=== PATIENT | female | born 1990 | race Caucasian/White ===

== ENCOUNTER 2025-03-09 22:28 | Emergency (ER) | payer OTHER, SELFPAY ==
--- OUTSIDE RECORDS SUMMARY | 2025-02-20 11:00 | XMS_ITS | Encounter Summary ---
Author Organization [employer] Address [address] [place] [address] Care Team Providers Care Emergency Vehicle Operations Instructor Name Role Phone Unavailable Primary Care Provider Unavailabl e Reason for Referral * Procedure/Equipment (Routine) - Incomplete Specialty Diagnoses / Procedures Referred By Viola t Referred To Contact Diagnoses Missed menses Procedures US OB < 14 Weeks Single US OB <14 Weeks W EV Single Liset Griffin APRN, CNM [address] [address] Phone: tel: fax: Referral ID Status Reason Start Date Expiration Date V isits Requested Visits Authorized [id number] Incomplete 03/01/2025 05/31/2026 1 1 Reason for Visit * Reason Comments Intake Encounter Details Date Type Department Care Team (Late Contact Info) Description 02/20/2025 11:00 AM CDT [facility] [address] 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 Thank you for your time today. It was so nice to talk with you, we look forward to partnering with you in your care. We covered a lot of information and there will be even more during your first visits, so we have put together some resources and reminders for you to review. Helpful Numbers: [phone]: [facility] OB Call Center (use this number to schedule, change, or cancel appointments, or tospeak with a nurse regarding questions or concerns) [phone]: PN Radiology (scheduling for routine ultrasounds) [phone]: PN Lab scheduling (all your testing and laboratory needs) Next Steps: Future Appointments Provider Department Center 03/07/2025 11:15 AM (Arrive by 11:10 AM) [facility] US 1 [facility] 03/08/2025 8:00 AM Liset Griffin APRN, CNM [facility] [address] Obstetrics/Gynecology PN [facility] 04/10/2025 10:15 AM Ana Maria Melo MD [facility] [address] Obstetrics/Gynecology PN [facility] ULTRASOUND It is important to be sure that you have an appointment for an ultrasound before your first in-person visit. These ultrasounds can often be done the same day as your in-person appointment or, if need be, a few days before. RADIOLOGY SCHEDULING - Call this number to schedule, change, cancel, or confirm yourultrasound appointment. VISIT(S) Please keep in mind that your partner is welcome to come with you to visits. When you are initially roomed, your partner will wait in the lobby and then will join shortly after. With an uncomplicated routine appointments generally happen every four weeks during the first two trimesters of . Starting at week 28 until delivery, appointments will be more frequent. Every is different, and our staff will guide you as your progresses to help keep your appointments on track. [facility] OB Call Center - Call this number for assistance with appointment scheduling. ROUTINE LABS Labs will be ordered by your provider at different stages of your beginning with your first in-person appointment. You will likely receive your results through [facility] at the same time as your provider and you may even see them before your provider has a chance. Don't worry - if there areany additional needs or the results are abnormal or concerning, the clinic will get in touch with you. Typically, if everything is normal or as expected, the provider will just review with you at your next routine appointment. MEDICATIONS Please contact your prescribing clinicians to notify them of your and discuss any medications you are currently taking. They may recommend changes or ask that you discuss with your OB clinician at your next appointment. It is not recommended to start a new medication or supplement without first consulting with your care team (this does not typically include things like antibiotics prescribed by another doctor). MYCHART (online patient portal and medical record) During your , we highly encourage and rely on your use of Bux180hart. This provides electronic access to, not only your personal medical information, but also to your care team. Please take time to become familiar with using this great tool. Some helpful options that are normally used during care include: Test Results: [facility] allows you to have access to results for the common blood and other laboratory tests completed during your . Questions/Messages: You can send non-urgent questions to your provider via Bux180hart. Please note, there can be a delay, so if you are experiencing any symptoms it is best to call the nurseline. Appointments: You can also use Rapid7t to review dates and times of appointments you have scheduled. [facility] Help: If you need help with your Bux180hart account, contact the Patient Support team at [phone]. For information on nutrition and vitamins visit: Nutrition During ACOG Visit and review our michelle and the e-book of Your Guide to : [place] for our free michelle called ???myHealthyPregnancy?? powered by [employer]. The michelle offers many quick articles and videos on , labor, , , and newborncare. Scan the following QR code: Or click this link: myHealthyPregnancy tracker michelle [facility] Copy & paste the following link to view the Your Guide to e-book: [email or web address]- - ABOUT THE BOOK: This is the first book (1 of 3) that you will receive during your . It focuses on the earlier stages of and is packed with information. You will also receive a hard copy (unless you prefer to just use the electronic version) of this book at your first in-person appointment. Having a chance to review this ahead of time may help you generate questions for your first visit. - VIDEOS: The e-book also has videos available on many topics that may be of interest to you. - SAVE OR SHARE: Feel free to save and share the link for the book. This makes it easier to find and also helps partners feel more involved and informed during your . - COMMON/HELPFUL TOPICS: - Genetic Screening/Testing Options - Page 10 - Symptoms & Body Changes - Benefits of Exercise - Sexual Activity - Dental Hygiene - Travel - Feeding Plans/ Resources - Working/Lifestyle Considerations - Potential Risks and How to Avoid (for example, teratogens, listeriosis, & toxoplasmosis) - Nutrition - What to Eat/Not Eat: Avoid high glycemic content foods Adequate calcium Avoid nitrites - Weight Gain: Remember the information in the book is based on normal averages. Your clinician will discuss with you your recommendations for based on things like your personal health and BMI. - [facility] Fish Guides: [email or web address]/environment/fish/docs/choosefishengli sh.pdf [email or web address]/environment/fish/docs/pregntstateguid [email or web address] CONTACT INSURANCE: Early is a great time to verify your insurance benefits and estimated costs. Individual insurance plans can vary, so it is best to contact your carrier directly for the most accurate information. If you have any difficulties or questions, don't hesitate to contact us at . Nursing support is available 24 hours a day, 365 days a year. We want to make sure that you feel supported and stay healthy. Thank you, again, for choosing us to partner in your care! [facility] * Attachments The following attachments cannot be sent through Care Everywhere. * !Nausea in (Peruvian) * !Over the Counter Medications: To treat common symptoms during (Peruvian) documented in this encounter Progress Notes * Caty Kidd RN - 02/20/2025 11:00 AM CDT RN OB Intake Visit Irena Currie is a 34 y.o. female, : This is a planned . They had been attempting for 24 cycles. Preferred Care Locations: Clinic Preference: [facility] [MD/FINISHING PAN OPERATOR] [facility] for Delivery: [facility] Provider care models, preferred locations, and expected plan for care reviewed with patient. 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 Other important social information/history: Patient has a very stressful job and is unable to seek therapy so is concerned about mental health Does patient have Type 1 or 2 diabetes? No CareEverwhere/External Records: CareEverywhere will need updating at in-person visit. Film Or Videotape Editor History: Pregravid Weight: 188 lbs Number of living children: 0 OB History Para Term AB Living 2 0 0 0 1 0 SAB IAB Ectopic Multiple Live Births 1 0 0 0 0 # Outcome Date GA Lbr Tigre/2nd Weight Sex Type Anes PTL Lv 2 Current 1 SAB 08/2024 7w0d Menstrual History: LMP: Patient's last menstrual period was 01/05/2025 (exact date). +UPT: 02/02/2025 02/20/2025 11:05 AM MENSTRUAL TRACKING Period Cycle (Days) 23 Period Duration (Days) 5 Period Pattern Regular Menstrual Flow Moderate Cytology History: Last cytology: 01/03/2024 - NILM Hx of abnormal cytology (see chart). Current Symptoms: Pt states she is experiencing nausea and vomiting. PUQE assessment completed - please review scoring. (Patient's nausea and vomiting objectively assessed through patient's responses to the Modified Unique Quantification of Emesis (PUQE) score: On an average day, for how long do you feel nauseated or sick to your stomach? >6 hours (5 points) On an average day, how many times do you vomit or throw up? 3-4 (3 points) On an average day, how many times do you have retching or dry heaves without bringing anything up? 5-6 (4 points) PUQE Scorin-12- Moderate nausea and vomiting . Patient education for Nausea and Vomiting in , and Morning Sickness to be provided to patient in AVS. Denies any current vaginal bleeding, pelvic pain, and other concerning symptoms. Home care advice and interventions provided to patient from approved Patient Education materials. Patient reminded of nurseline resource for new, worsening, or changing symptom(s) support and management. Contact information provided. GENERAL HEALTH STATUS & HISTORY: Past Medical History: Diagnosis Date Pap smear abnormality of cervix HPV STD (sexually transmitted disease) (HRC) HPV Urinary tract infection, site not specified Varicella Virus Infection History: Hx Varicella (Virus) Hx HPV+ Surgical/Procedure History: Past Surgical History: Procedure Laterality Date COLPOSCOPY WISDOM TEETH EXTRACTION Medications: Current Outpatient Medications Medication Sig Dispense Refill Biotin 5 MG (Patient not taking: Reported on 02/20/2025) Ferrous Sulfate Dried 160 (50 Fe) MG (Patient not taking: Reported on 02/20/2025) letrozole (FEMARA) 2.5 MG tablet Take 1 Tablet (2.5 mg) by mouth daily for 5 days. 5 Tablet 0 MAGNESIUM OR (Patient not taking: Reported on 02/20/2025) metoclopramide (REGLAN) 10 MG tablet Take 1 Tablet (10 mg) by mouth 4 times daily before meals and at bedtime. (Patient not taking: Reported on 02/20/2025) 30 Tablet 2 Multiple Vitamins-Minerals (MULTIVITAL OR) (Patient not taking: Reported on 02/20/2025) [place]-3 Fatty Acids (OMEGA-3 CF OR) (Patient not taking: Reported on 02/20/2025) Vit-Fe Fumarate-FA ( OR) progesterone (PROMETRIUM) 200 MG capsule INSERT 1 CAPSULE (200 MG) VAGINALLY DAILY AT BEDTIME. 40 Capsule 1 No current facility-administered medications for this visit. Pt medications, allergies, and preferred pharmacy reviewed. Vitamin: Patient is currently taking a vitamin. Pt agrees to call OB clinicians with questions or concerns regarding medication use throughout thispregnancy and to notify any other prescribing clinicians of status. 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 Driver Tobacco Use Smoking status: Never Smokeless tobacco: Never Vaping Use Vaping status: Never Used Substance and Sexual Activity Alcohol use: Not Currently Comment: does not drink due to Drug use: Never Sexual activity: Yes Partners: Male control/protection: Attempting Comment: Damaso Other Topics Concern Bike Helmet No [place] Water Yes Exercise Yes Guns in home Yes Comment: locked and secured Seat Belt Yes Special Diet No Weight Concern No Social Drivers of Health Tobacco Use: Low Risk (02/20/2025) Patient History Smoking Tobacco Use: Never Smokeless Tobacco Use: Never Depression: Not at risk (05/27/2021) PHQ-2 PHQ-2 Score: 0 FAMILY/GENETIC STATUS, HISTORY, & RISK FACTORS: Patient reports a positive family history of AMA at the time delivery, sister has Autism COMPLETED WITH INTAKE VISIT: Ultrasound: Ordered per standing order. Pt instructed to complete scan prior to, and as close to, NOB1 visit as possible. Pt transferred to radiology scheduling upon completion of intake visit. Education Topics Discussed and Encouraged for Review from Your Guide to and HP/PN approved Patient Education Resources: Diet and Nutrition: encourage fruits, vegetables, and low-fat protein sources avoid high glycemic index foods and simple carbs importance of adequate calcium discussed eating fish in listeriosis infection (including sources and prevention of Listeriosis) avoid nitrites in processed meats Medications: Patient provided additional education piece of Gzlx-aah-Xjkzxdn medications safe for use in . Sexual activity during discussed. Dental hygiene during discussed. Avoid use of alcoholic beverages, smoking, and recreational drugs reminder provider. Patient provided clinical resources, as applicable. Environmental and work considerations and overall lifestyle choices in reviewed with patient. Benefits of exercise during reviewed. Patient encouraged to maintain regular physical activity. /Childbirth classes and options discussed. At next visit, provider to review records and establish formal plan of care. Book & Michelle: Patient provided information on how to access Your Guide to e-book and the free myHealthyPregnancy Michelle. MyChart: Patient given guidance to use Bux180hart to message care team and review results during theirpregnancy. Additional links/resources sent for patient to review. Nurseline: Pt instructed to call nurseline with changes, questions, or concerns. All other standard OB educational resources reviewed with patient, as well as ways to access or obtain. Pt verbalizes understanding and agrees with plan of care. No further questions at this time. Patient reminded of nurseline access 24/01. director of community center Visit completed - February 20, 2025 Merchandise Processor: Not Applicable Length of appointment: 47 minutes not including chart review or visit documentation. documented in this encounter Plan of Treatment Upcoming Encounters Date Type Department Care Team (Late st Contact Info) Description 03/13/2025 10:00 AM CDT Appointment [facility] [address] [place] [phone] 03/13/2025 11:00 AM CDT Appointment [facility] [address] [place] [address] Zari Jasso [facility] [address] [facility] [address] [place] [address] 04/04/2025 8:15 AM CDT Appointment [facility] [address] [place] [address] Alayna Toney, INSPECTOR CONVEYOR LINE, CNM [address] [place] [address] 04/04/2025 9:00 AM CDT Appointment [facility] [address] [place] [address] Durga Peters MD [address] [facility] [place] [address] 04/10/2025 10:15 AM CDT Appointment [place] [address] Obstetrics/Gynecology [address] [place] [phone] [place] [address] [place] [address] 05/10/2025 8:45 AM MACHINE SHOP SUPERVISOR Appointment [place] [address] Obstetrics/Gynecology [address] [place] [phone] [place] [address] [place] [phone] 06/05/2025 2:30 PM MACHINE SHOP SUPERVISOR Appointment [facility] [address] [place] [address] Alayna Toney, PATTI, [facility] [address] [place] [address] 06/05/2025 3:15 PM MACHINE SHOP SUPERVISOR Appointment [facility] Maternal Medicine [address] [place] [phone] Durga Peters MD [address] [facility] [place] [address] documented as of this encounter Results * US OB < 14 Weeks Single (03/07/2025 11:31 AM CDT) Anatomical Region Laterality Modality Pelvis Ultrasound Impressions 03/07/2025 12:37 PM CDT 1. Single living intrauterine with a sonographic gestational age of 9 weeks + 2 days, corresponding to an MARIBETH of 10/08/2025. Signed by: John Rivera 03/07/2025 12:37 PM Narrative 03/07/2025 12:37 PM CDT EXAM: US OB < 14 WEEKS SINGLE INDICATION: missed menses COMPARISON: Ultrasound 06/01/2024 TECHNIQUE: Transabdominal imaging was performed. FINDINGS: Gestational sac: Unremarkable. [place]-rump length measures 2.5 cm, corresponding to9w2d gestational age. Gestational sac location: Normal MARIBETH: 10/08/2025. Embryonic/ cardiac activity is identified at 169 bpm. Right Ovary: Measures 2.7 x 2.5 x 2.8 cm and appears unremarkable. Left Ovary: Measures 2.9 x 1.7 x 2.4 cm and appears unremarkable. No suspicious adnexal mass. Free Fluid: No significant free fluid. GA by LMP: 8w5d GA by Prior US: NA GA by today's US: 9w2d MARIBETH by today's US: 10/08/2025 Procedure Note John Rivera MD - 03/07/2025 EXAM: US OB < 14 WEEKS SINGLE INDICATION: missed menses COMPARISON: Ultrasound 06/01/2024 TECHNIQUE: Transabdominal imaging was performed. FINDINGS: Gestational sac: Unremarkable. [place]-rump length measures 2.5 cm, corresponding to9w2d gestational age. Gestational sac location: Normal MARIBETH: 10/08/2025. Embryonic/ cardiac activity is identified at 169 bpm. Right Ovary: Measures 2.7 x 2.5 x 2.8 cm and appears unremarkable. Left Ovary: Measures 2.9 x 1.7 x 2.4 cm and appears unremarkable. No suspicious adnexal mass. Free Fluid: No significant free fluid. GA by LMP: 8w5d GA by Prior US: NA GA by today's US: 9w2d MARIBETH by today's US: 10/08/2025 IMPRESSION 1. Single living intrauterine with a sonographic gestational ageof 9 weeks + 2 days, corresponding to an MARIBETH of 10/08/2025. Signed by: John Rivera 03/07/2025 12:37 PM us Liset Griffin APRN, KIMM RAD US Final Result documented in this encounter Visit Diagnoses Diagnosis Missed menses- Primary Absence of menstruation Missed menses Absence of menstruation documented in this encounter
--- OUTSIDE RECORDS SUMMARY | 2025-03-07 11:15 | XMS_ITS | Encounter Summary ---
Author Organization [employer] Address [address], [place] [address] Care Team Providers Care Multifocal Lens Inspector Name Role Phone Unavailable Primary Care Provider Unavailabl e Reason for Visit * Procedure/Equipment (Routine) - Incomplete Specialty Diagnoses / Procedures Referred By Contradha t Referred To Contact Diagnoses Missed menses Procedures US OB < 14 Weeks Single US OB <14 Weeks W EV Single Liset Griffin APRN, CNM [address] [place] [address] Phone: tel: fax: Referral ID Status Reason Start Date Expiration Date V isits Requested Visits Authorized [id number] Incomplete 03/01/2025 05/31/2026 1 1 Encounter Details Date Type Department Care Team (Late st Contact Info) Description 03/07/2025 11:15 AM CDT Ancillary Procedure [facility] [address] [place] [phone] Liset [place]N, CNM [address] [address] [place] [address] Missed menses Social History Tobacco Use Types Packs/Day Years Used Date Smoking Tobacco: Never Smokeless Tobacco: Never Alcohol Use Standard Drinks/Week Comments Not Currently 0 (1 standard drink = 0.6 oz pure alcohol) does not drink due to PHQ-2 Answer Date Recorded PHQ-2 Score 0 05/27/2021 Depression Answer Date Recor ded Last EPDS Total Score 1 03/08/2025 Last EPDS Self Harm Result Not on file 03/08 Estimated Date of Delivery Comme nts Yes 10/08/2025 Based on Ultraso und Sex and Gender Information Value Date Recorded Sex Assigned at Not on file Legal Sex Female 7:00 AM CDT Gender Identity Not on file Sexual Orientation Not on file 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 on file Not on file Not o n file 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, Power 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 Not on file Not on file Not on file documented as of this encounter Plan of Treatment Upcoming Encounters Date Type Department Care Team (Late st Contact Info) Description 03/13/2025 10:00 AM CDT Appointment [facility] [address] [place] [phone] 03/13/2025 11:00 AM CDT Appointment [facility] [facility] [address] [place] [address] Zari Jasso, [facility] [address] [facility] [address] [place] [address] 04/04/2025 8:15 AM CDT Appointment [facility] [facility] [address] [place] [address] [phone] Alayna Toney, SALES COACH, CNM [address] [place] [address] 04/04/2025 9:00 AM CDT Appointment [facility] [address] [place] [address] Durga Peters MD [address] [facility] [address] [place] [id number] 04/10/2025 10:15 AM CDT Appointment [place] [address] Obstetrics/Gynecology [address] [place] [phone] [place] [address] [place] [address] 05/10/2025 8:45 AM COMPLETION MANAGER Appointment [place] [address] Obstetrics/Gynecology [address] [place] [phone] Liset Griffin, SALES COACH, CNM [address] [place] [phone] 06/05/2025 2:30 PM COMPLETION MANAGER Appointment [facility] [facility] [address] [place] [phone] Alayna Toney APRN, CNM [address] [place] [address] 06/05/2025 3:15 PM COMPLETION MANAGER Appointment [facility] [address] [facility] [address] [place] [address] [phone] Durga Peters MD [address] [facility] [address] [place], [place] [address] documented as of this encounter Procedures Procedure Name Priority Date/Time Associated Diagnosis Comments US OB < 14 WEEKS SINGLE Routine 03/07/2025 11:31 AM CDT Missed menses documented in this encounter Results * US OB < [...] imaging was performed. FINDINGS: Gestational sac: Unremarkable. [place]-rump length measures 2.5 cm, corresponding to9w2d gestational [...] imaging was performed. FINDINGS: Gestational sac: Unremarkable. [place]-rump length measures 2.5 cm, corresponding to9w2d gestational [...] 03/07/2025 12:37 PM us Liset Griffin APRN, CNM RAD US Final Result documented in this encounter Visit Diagnoses Diagnosis Missed menses Absence of menstruation documented in this encounter
--- OUTSIDE RECORDS SUMMARY | 2025-03-08 08:00 | XMS_ITS | Encounter Summary ---
[facility] Address [address], [place] [address] Care Team Providers Care Price Checker Name Role Phone Unavailable Primary Care Provider Unavailabl e Reason for Referral * Procedure/Equipment (Routine) - Incomplete Specialty Diagnoses / Procedures Referred By Contac t Referred To Contact Diagnoses High risk , antepartum Advanced maternal age, primigravida, antepartum Procedures MFM US OB Detailed Anatomy Al[place] CN[place] [address] [place] [address] Phone: tel: fax: Referral ID Status Reason Start Date Expiration Date V isits Requested Visits Authorized [id number] Incomplete 03/08/2025 06/07/2026 1 1 * Procedure/Equipment (Routine) - Incomplete Specialty Diagnoses / Procedures Referred By Contac t Referred To Contact Diagnoses High risk , antepartum Advanced maternal age, primigravida, antepartum Procedures MFM US OB First Trimester Ultrasound Alayna Toney APRN, CNM [address] [place] [address] Phone: tel: fax: Referral ID Status Reason Start Date Expiration Date V isits Requested Visits Authorized [id number] Incomplete 03/08/2025 06/07/2026 1 1 * Consult/Transfer Care (Routine) - New Request Specialty Diagnoses / Procedures Referred By Viola t Referred To Contact Diagnoses High risk , antepartum [place] CN[place] [address] [place] [address] Phone: tel: fax: Referral ID Status Reason Start Date Expiration Date V isits Requested Visits Authorized [id number] New Request 03/08/2025 06/07/2026 1 1 Scheduling Instructions Your clinician has recommended an appointment with [facility]. A water meter mechanic will contact you to assist you in setting up this appointment. If you have not been contacted within one week or have any questions, please call [phone]. We suggest you call your health insurance company about your coverage and benefits for this appointment. Question Answer Appointment Urgency? Non-Urgent Multiple Gestation? 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 Not on file Not on file documented as of this encounter Last Filed Vital Signs Vital Sign Reading Time Taken Comments Blood Pressure 133/77 03/08/2025 8:07 AM CDT Pulse 83 03/08/2025 8:07 AM CDT Temperature - - Respiratory Rate - - Oxygen Saturation - - Inhaled Oxygen Concentration - - Weight 84.9 kg (187 lb 3.2 oz) 03/08/2025 8:07 A M CDT Height 162.6 cm (5' 4) 03/08/2025 8:07 AM CDT Body Mass Index 32.13 03/08/2025 8:07 AM CDT documented in this encounter Patient Instructions * Patient Instructions* Liset Griffin, PATTI, RENEE - 03/08/2025 8:00 AM CDT Images from the original note were not included. Low dose aspirin 162 mg daily starting at 12 weeks. GENETIC SCREENING OPTIONS NIPS (non-invasive screening): This is a blood test that looks at baby's DNA. It is done through a company called [employer]. It looksfor trisomy 21 (Down Syndrome), trisomy 13, trisomy 18, and 22q. It can also detect the sex and problems with sex chromosomes. You can opt out of learning the sex if you wish, but [employer] will release the results to you if they are abnormal. What is 22q? 22q affects all pregnancies equally (~07/1499) as it is not related to AMA and is usually sporadic 22q is an extremely variable condition, ranging from mild to severe Common features include heart defects, developmental delays and learning differences, seizures, immune deficiencies, and palatal abnormalities It can be done any time after 9 weeks, though closer to 10 might be slightly more accurate. It will take 1-2 weeks for the test results to come in. It's possible that there will be insufficient DNA in the sample. If that happens, you will be giventhe option to repeat it. The likelihood of getting a good sample the second time depends on a few variables, including the amount of DNA present the first time. This number will be included in the report. If that occurs, and you wish to repeat it, you will not be charged twice. You can call your insurance with the following CPT codes: 83049 (NIPS). More information can be found at [employer] Maternal First Trimester Ultrasound: This is an ultrasound done with the Maternal Medicine Department. It is done at 12-14 weeks. It is an early anatomy scan. It does NOT look at the gender. Usually insurance covers it if your is considered high risk. Please check with your insurance plan. The CPT codes used for this are as follows: [place] [address], if transvaginal needed then add 22087. For MFM detailed first trimester 99400 and 24043. Carrier screening: This is a blood test for you that looks at your DNA to see if you are a carrier for genetic abnormalities. The basic carrier panel Horizon 4 looks for Cystic Fibrosis (CF),?Spinal Muscular Atrophy (SMA),?Fragile X,?and Duchenne Muscular Dystrophy (DMD). This panel is slightly different than what ACOG recommends. ACOG recommends that all women be offered screening for Cystic Fibrosis, SMA, and hemoglobinopathies. The cost is $250. If you are a carrier for any of the above conditions, we recommend having your partner tested for that condition. CPT codes: 99090, 29216, 82144. AFP (Alpha Protein): This is a blood test looking at baby's risk of spina bifida and other open neural tube defects suchas anencephaly. It is offered between 15-20 weeks. You will need to check with your insurance about coverage. For nausea: 1) Take Vitamin B6, 25 mg 3-4 times per day whether or not you think it's helping. 2) Take Unisom 1/2 - 1 tablet before bed. 3) Drink carbonated beverages such as Sprite, carbonated water, or gosia michel. Stay hydrated. 4) Eat/drink anything gosia flavored (candy, tea). 5) Eat baked potatoes. 6) Sleep as much as possible. 7) Eat Preggie Pops (hard candies). Try to find the kind with Vitamin B6. 8) Keep saltines and gosia michel on your nightstand and have a little of each before getting out of bed. Get up slowly. 9) Don't take your vitamins on an empty stomach. 10) Some women find Sea Bands helpful for nausea management. Thank you for choosing us for your care. You will receive 3 books throughout your starting with Your Guide to . We recommend you review the following information in this book: Testing Genetic Testing How Your Body Changes Making Good Choices Six Steps to a Healthy How Babies Grow and Change To learn about the screening available for specific inherited diseases including cystic fibrosis and spinal muscular atrophy, see our handout on Genetic Disease Carrier Screening: https://[employer]/57942.pdf Drinking any amount of alcohol during is not safe. Watch this short video by [employer] [place]: Proof: Some Think Drinking During is OK. It???s Not. - Ophelia video Marijuana use is never recommended while or . Learn why here: https://[employer]/43973.pdf is a time of transition. If you feel overwhelmed, anxious or depressed, see the followingresources: Emotional Distress During and After : https://[employer]/96999.pdf Resources & Support for New & Expecting Parents: https://[employer]/04199.pdf The 3 books provided throughout are also available digitally. Here are the links to each book: Your Guide to : https://user-[employer].iMOSPHERE.bz/WuftjfSgadygqr-Wttk-Olbon-db-e-Qeadhwe- Preparing for Childbirth: https://user-[employer].iMOSPHERE.bz/PlctclDzlwiqvn-Dbm-Qjqr-of-Motherhood Taking Care of You and Your Bivalve: https://user-[employer].iMOSPHERE.bz/GwgyuzFmyuoxix-S-Yol-Beginning [place] for our free harshil called ???myHealthyPregnancy?? powered by [employer]. The harshil offers many quick articles and videos on , labor, , , and newborncare. Find instructions here: Or click on this link: myHealthyPregnancy tracker harshil [facility] In [place], soon-to-be, new, and nursing parents have legal protections to help keep them safe and healthy in the workplace. Find more information here: Or click on this link: Workers And New Parents documented in this encounter Progress Notes * Hazel Adhikari RN - 03/08/2025 8:00 AM CDTAddended by: HAZEL ADHIKARI on: 03/08/2025 02:16 PM Modules accepted: Orders * Liset Griffin APRN, CNM - 03/08/2025 8:00 AM CDT Initial Visit Irena Currie is a 34 y.o. is being seen today for her first obstetrical visit. She is established with the OBGYN department and known to me. Subjective: Current symptoms: Nausea: all day, retching, dry heaves. - PUQE score= 12 - Reglan and Zofran was prescribed but she advised she cannot take or she will be disqualified to work per employer. She was advised that she can take Reglan but then cannot return to work for 30 hours. Zofran is not permitted. 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 Breast tenderness: no Fatigue: yes Bleeding/Spotting: no Other: none Healthy Beginnings: mom is an alcoholic and her father had drug and alcohol use issue (he has ). She does not drink alcohol. Lead: no EPDS: 1 Risk Factors: Hx miscarriage/possible luteal phase defect/short cycles: Irena and Sal met in July of this for miscarriage. Currently taking progesterone 200 mg. Femara used this . Last dose 01/07 or 01/08. Class 1 obesity: Pre- BMI =34 AMA: Will be 35 at MARIBETH. Rh negative: B neg Hx abnormal pap: ASCUS HPV neg 05/2021 Due 2025. Menstrual History and Dating: Dating Summary Working MARIBETH: None selected Based On MARIBETH [place] Diff User Date Last Menstrual Period on 01/05/2025 (Exact Date) 10/12/2025 Caty Kidd RN 02/20/2025 LMP: 01/05/25 Menses are regular, every 21- 23 days. Positive home UPT on: 02/02/25 Dating ultrasound yesterday 03/07 showed GA of 9w 2d. Discrepancy between LMP and radiology datin days. dating is based on ultrasound, and the patient is agreeable to this MARIBETH: 10/08/25. 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 Personal or family history of pre-eclampsia: History of sexual assault or abuse: no Plans to use WIC: no Regular dental exams: yes OB History Para Term AB Living 2 0 0 0 1 0 SAB IAB Ectopic Multiple Live Births 1 0 0 0 0 # Outcome Date GA Lbr Tigre/2nd Weight Sex Type Anes PTL Lv 2 Current 1 SAB 08/2024 7w0d Last pap: 01/03/24 Hx of abnormal pap: yes. Social History: SDOH[1] Partner involved: yes, Damaso. Currently living with Damaso. 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 Partner employment: peoples[employer] consultant. Past Medical History: Past Medical History[2] Surgeries: Past Surgical History[3] Family/Genetic History: Family History[4] Luteal phase defect. Medications: Medications - Previous to this Encounter[5] Allergies/medications/family/genetic history reviewed and updated as needed in [facility]. Objective: Estimated body mass index is 34.84 kg/m?? as calculated from the following: Height as of 05/29/24: 5' 4 (1.626 m). Weight as of 10/16/24: 203 lb (92.1 kg). See flow sheet. General: The patient appears well, in NAD. Neck: supple, symmetrical, trachea midline, no adenopathy. Thyroid: not enlarged, symmetric, no tenderness/mass/nodules. Lungs: clear, good air entry, no wheezes, rhonchi or rales. Heart: No murmurs, regular rate and rhythm. Breast: normal without suspicious masses, skin or nipple changes or axillary nodes Abdomen: soft without tenderness, guarding, rebound tenderness, mass or organomegaly. Back: Symmetric, normal curvature, no CVAT. Pelvic: Ext Gen: No lesions, normal female Urethra: Normal Speculum and bimanual exams deferred. Lower extremities: No edema Skin: No rash or lesions. Psychiatric: Alert & oriented with normal affect and insight, does not appear depressed or anxious. Assessment: 34 y.o. at Unknown Problem List[6] Plan: During this visit, I completed the following health counseling with patient: Genetic screening options Offered NIPS, MFM early anatomy screen, and carrier screening (core, expanded). Also discussed maternal screen and quad as less sensitive tests and generally recommended only if insurance doesn't cover previously mentioned. Check with insurance for coverage Discussed [facility] billing and contact information provided. Supplements recommended daily Vitamin Avoid use of alcoholic beverages, smoking and recreational drugs. Diet and Nutrition Healthy, well-balanced nutrition Listeriosis prevention- food safety information Fish brochure Precautions and warning signs: Pt to call with bleeding, pain, fever. Reviewed page 46 of NOB book. Weight gain recommendations during Pre- BMI is above 30 so recommended weight gain is 11-20 # Benefits of exercise during and encouraged regular physical activity Toxoplasmosis prevention Partner to change litter box during if cat(s) at home. COVID Counseling COVID virus information and precautions discussion. Follow CDC for latest recommendations. COVID vaccine recommended during for those not already vaccinated. Advised to call with positive result at which time Paxlovid will likely be recommended. Advised positive results will result in recommendations to start ASA and proceed with additional monitoring. care Schedule of visits reviewed. Some visits may be conducted via phone/video during covid-19 pandemic. MD call group discussed. Nurse line for concerns between appointments Labs: routine initial labs; see orders for additional labs. Ultrasound: early OB ultrasound for viability and to confirm dating reviewed. MFM & genetic screening/testing: desires NIPS and carrier screening and 12-14 week scan with MFM. Referral to Healthy Beginnings: no Low dose aspirin for the prevention of preeclampsia: yes COVID vaccine: received two initial doses and declines further. Return in 4 weeks for NOB2 with MD, sooner as needed Problems: Hx miscarriage/possible luteal phase defect/short cycles: Plan to use ultrasound dating due to short cycles. Class 1 obesity: Weight gain of 11-20 pounds recommended Offer Level 2 ultrasound @ 20-22 weeks Weekly testing at 36 weeks Ppx ASA 162 mg daily. Congratulated on recent weight loss of 20# AMA >35: Detailed level 2 at 20 weeks Genetic screening discussed and offered: NIPS, 12-14 week scan and carrier screening Growth at 32w IOL based on ACOG recommendations and risk factors Rh negative: Rho nivia at 28w or with bleeding as heavy or heavier than a period. 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 Tobacco Use Smoking status: Never Smokeless tobacco: [...] at risk (05/27/2021) PHQ-2 PHQ-2 Score: 0 [2] Past Medical History: Diagnosis Date Pap smear abnormality of cervix HPV STD (sexually transmitted disease) ([facility]) HPV Urinary tract infection, site not specified Varicella Virus [3] Past Surgical History: Procedure Laterality Date COLPOSCOPY WISDOM TEETH EXTRACTION [4] Family History Problem Relation Name Age of Onset Hypertension Mother Hypertension Father Schizophrenia Sister Bipolar Disorder Sister Autism Sister Unknown Brother Unknown Brother Dementia Maternal Grandmother Unknown Maternal Grandfather Diabetes Paternal Grandmother [5] Outpatient Medications Prior to Visit Medication Sig Dispense Refill Biotin 5 MG [...] OR) (Patient not taking: Reported on 02/20/2025) Storden-3 Fatty Acids (OMEGA-3 CF OR) (Patient not taking: Reported on 02/20/2025) Vit-Fe Fumarate-FA ( OR) progesterone (PROMETRIUM) 200 MG capsule INSERT 1 CAPSULE (200 MG) VAGINALLY DAILY AT BEDTIME. 40 Capsule 1 No facility-administered medications prior to visit. [6] Patient Active Problem List Diagnosis Atypical squamous cells of undetermined significance on cytologic smear of cervix (ASC-US) Elevated TSH * Brooke Aranda LPN - 03/08/2025 8:00 AM CDT Patient's nausea and vomiting objectively assessed through patient's responses to the Modified Unique Quantification of Emesis (PUQE) score: On an average day, for how long do you feel nauseated or sick to your stomach? >6 hours (5 points) On an average day, how many times do you vomit or throw up? 1-2 (2 points) On an average day, how many times do you have retching or dry heaves without bringing anything up? 7 or more (5 points) PUQE Scorin-12- Moderate nausea and vomiting documented in this encounter Plan of Treatment Upcoming Encounters Date Type Department Care Team (Late st Contact Info) Description 03/13/2025 10:00 AM CDT Appointment [facility] [address] [place] [address] 03/13/2025 11:00 AM CDT [facility]ointment [facility] Maternal Medicine [address] [place] [address] Zari Jasso [facility] [address] [place] [address] 04/04/2025 8:15 AM CDT Appointment [facility] Maternal Medicine [address] [place] [address] [place] [address] [place] [address] 04/04/2025 9:00 AM CDT Appointment [facility] Maternal Medicine [address] [place] [address] Durga Peters MD [address] [place] [address] [address] [place] [address] 04/10/2025 10:15 AM CDT Appointment [place] [address] Obstetrics/Gynecology [address] [place] [phone] [place] [address] [place] [address] 05/10/2025 8:45 AM SITE INTERPRETER Appointment [place] [address] Obstetrics/Gynecology [address] [place] [phone] Liset Griffin APRN, CNM [address] [place] [address] 06/05/2025 2:30 PM SITE INTERPRETER Appointment [facility] [address] Maternal Medicine [address] [place] [address] Alayna Toney, [employer] POWER PLANT ENGINEER, CNM [address] [place], [place] [address] 06/05/2025 3:15 PM SITE INTERPRETER Appointment [facility] Maternal Medicine [address] [place], [place] [address] Durga Peters MD [address] [place] [address] [place], [place] [phone] Scheduled Orders Name Type Priority Associated Diagnoses Orde r Schedule TSH Lab Routine High risk , antepartum Expected: 03/08/2025, Expires: 06/06/2025 Antibody Screen Lab Routine High risk , antepartum Expected: 03/08/2025, Expires: 05/17/2025 Complete Blood Count-No Diff Lab Routine High risk , antepartum Expected: 03/08/2025, Expires: 05/08/2025 Hepatitis B Surface Antigen Microbiology Routine High risk , antepartum Expected: 03/08/2025, Expires: 06/06/2025 Hepatitis B Surface Antibody Microbiology Routine High risk , antepartum Expected: 03/08/2025, Expires: 06/06/2025 Hepatitis B Core Antibody Microbiology Routine High risk , antepartum Expected: 03/08/2025, Expires: 06/06/2025 Hepatitis C Antibody, with Reflex Microbiology Routine High risk , antepartum Expected: 03/08/2025, Expires: 05/08/2025 Hgb A1C Lab Routine High risk , antepartum Expected: 03/08/2025, Expires: 05/08/2025 HIV 1/2 Ag/Ab 4th Generation Microbiology Routine High risk , antepartum Expected: 03/08/2025, Expires: 05/08/2025 Rubella Immune Status, IgG Microbiology Routine High risk , antepartum Expected: 03/08/2025, Expires: 05/08/2025 Urine Culture Microbiology Routine High risk , antepartum Expected: 03/08/2025, Expires: 05/08/2025 Syphilis Panel, with Reflex Microbiology Routine High risk , antepartum Expected: 03/08/2025, Expires: 05/17/2025 [facility] NIPT Lab Routine High risk , antepartum Expected: 03/08/2025, Expires: 06/06/2025 Horizon Carrier Screening Lab Routine High risk , antepartum Expected: 03/08/2025, Expires: 06/06/2025 MFM US OB First Trimester Ultrasound Imaging New Routine High risk , antepartum Advanced maternal age, primigravida, antepartum Expected: 03/08/2025 (Approximate), Expires: 03/08/2026 MFM US OB Detailed Anatomy Imaging New Routine High risk , antepartum Advanced maternal age, primigravida, antepartum Expected: 03/08/2025 (Approximate), Expires: 03/08/2026 Scheduled Referrals Name Type Priority Associated Diagnoses Orde r Schedule Maternal Medicine Services Referral Routine High risk , antepartum Ordered: 03/08/2025 documented as of this encounter Procedures Procedure Name Priority Date/Time Associated Diagnosis Comments CHLAMYDIA & GC (14 YEARS & OLDER) Routine 03/08/2025 9:04 AM CDT High risk , antepartum documented in this encounter Results * Chlamydia & GC (14 Years and Older): Vagina (03/08/2025 9:04 AM CDT) Chlamydia Trachomatis STD Not Detected Not Detected 03/09/2025 12:36 AM CDT [facility] N. gonorrhoeae STD Not Detected Not Detected 03/09/2025 12:36 AM CDT [facility] Swab STD SPECIMEN FROM VAGINA / Unknown Non-blood Collection / Unknown 03/08/2025 9:04 AM CDT 03/08/2025 11:58 AM CDT [facility] - 03/09/2025 12:36 AM CDT Test performed by Business Planning Analyst Mediated Amplification (TMA). us Liset Griffin APRN, CNM LAB_1 Final Result [facility] CLIA: [id number] [id number] [place] [address] documented in this encounter Visit Diagnoses Diagnosis High risk , antepartum- Primary Advanced maternal age, primigravida, antepartum Elderly primigravida, antepartum documented in this encounter
[2025-03-09 22:40] VITALS: BP 131/83; PULSE 85; RESP 16; TEMP 36.4; O2SAT 100; BMI 30.8
[2025-03-09 22:51] LABS: Appearance Urine Clear (Clear)
--- NOTE | 2025-03-09 23:06 | ED.FEMALEGU ---
HPI - Female Genitourinary General Chief complaint: Urogenital Problems, Female Stated complaint: 10 wks , possible uti Time Seen by Provider: 03/09/25 22:34 History of Present Illness HPI Narrative: Patient is a 34-year-old woman who comes in today with urinary frequency and dysuria. Her UA shows few bacteria. She is in her 1st trimester of her . No significant vaginal bleeding no abdominal pain no contractions. Patient has been having symptoms over last 2-3 days. She has no nausea no vomiting no fevers no chills no night sweats no rashes no skin breakdown. She is otherwise feeling fine. Related Data Home Medications ?Medication ?Instructions ?Recorded ?Confirmed vit-iron fum-folic ac .ROUTE 03/09/25 Allergies Allergy/AdvReac Type Severity Reaction Status Date / Time No Known Drug Allergies Allergy Verified 03/09/25 22:43 Review of Systems Status of ROS: Reports: 10 or more systems reviewed and unremarkable except as noted in History and below [facility] Medical History (Updated 03/09/25 @ 23:08 by David Bryant MD) Patient denies medical problems ?Z78.9 - Other specified health status (ICD-10) Exam Narrative: Exam Narrative: EXAM GENERAL: Patient appears comfortable and well. EYES: No scleral icterus. LYMPH: No supraclavicular or cervical lymphadenopathy. SKIN: Visible skin seen during exam normal or with benign process only. EXT: No dependent lower extremity pedal edema. HEART: Regular rate and rhythm with no murmurs, rubs, or gallops. LUNGS: Clear to auscultation bilaterally with no crackles or wheezes. ABD: Soft, non tender, non distended. PSYCH: Good eye contact, speech is not pressured. Const: Vital Signs, click to edit/add: Vital Signs - 24 hr 03/09/25 22:40 Temperature 97.6 F Pulse Rate [Left P ulse Oximeter] 85 Respiratory Rate 16 Blood Pressure [Ri ght Upper Arm] 131/83 Pulse Oximetry 100 Oxygen Delivery Me thod Room Air Course Course ED Course: Patient seen and examined. Her UA is borderline but do think it is worth treating her for UTI with amoxicillin. She will drink plenty fluids get plenty of rest follow-up with her OBGYN this week if her symptoms persist. Vital Signs Vital signs: Initial Vital Signs Temperature 97.6 F 03/09/25 22:40 Temperature Source Temporal Artery Scan 03/09/25 22:40 Pulse Rate 85 03/09/25 22:40 Respiratory Rate 16 03/09/25 22:40 Blood Pressure 131/83 03/09/25 22:40 Blood Pressure Mean 99 03/09/25 22:40 Blood Pressure Position Semi-Fowlers 03/09/25 22:40 Pulse Oximetry 100 03/09/25 22:40 Oxygen Delivery Method Room Air 03/09/25 22:40 Vital Signs Temperature 97.6 F 03/09/25 22:40 Pulse Rate 85 03/09/25 22:40 Respiratory Rate 16 03/09/25 22:40 Blood Pressure 131/83 03/09/25 22:40 Pulse Oximetry 100 03/09/25 22:40 Oxygen Delivery Method Room Air 03/09/25 22:40 Temperature 97.6 F 03/09/25 22:40 Pulse Rate 85 03/09/25 22:40 Respiratory Rate 16 03/09/25 22:40 Blood Pressure 131/83 03/09/25 22:40 Pulse Oximetry 100 03/09/25 22:40 Oxygen Delivery Method Room Air 03/09/25 22:40 MDM - Female Genitourinary Lab Data Labs: Lab Results 03/09/25 Range/Units 22:39 Urine Color Yellow (Yellow) Urine Appearance Clear (Clear) Urine pH 5.5 (5.0-8.5) Ur Specific [place] 1.025 (1.000-1.030) Urine Protein Negative (Negative) Urine Glucose (UA) Negative (Negative) Urine Ketones Negative (Negative) Urine Blood Trace-intact A (Negative) Urine Nitrite Negative (Negative) Urine Bilirubin Negative (Negative) Urine Urobilinogen 0.2 (0.2-1.0) Ur Leukocyte Esterase Negative (Negative) Urine RBC 0-2 (0-2) Urine WBC 0-2 (0-5) Ur Squamous Epith Cells Few (None-Few) Urine Bacteria Few A (None) Discharge Plan Discharge Clinical Impression: Urinary tract infection Patient Disposition: Home, Self-Care Condition: Stable Instructions: Urinary Tract Infection in (ED) Additional Instructions: Amoxicillin as directed Tylenol Rest Fluids Follow-up with your doctor as needed. Activity Level: No Restrictions Discharge Diet: Regular Prescriptions: No Action vit-iron fum-folic ac [ Vitamin] .ROUTE Stand Alone Forms: Airtime Info Instructions
--- OUTSIDE RECORDS SUMMARY | 2025-03-09 23:14 | XMS_ITS | Encounter Summary ---
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 Message sent to patient via Impliant. documented in this encounter Plan of Treatment Upcoming Encounters Date Type Department Care Team (Late st Contact Info) Description 03/13/2025 10:00 AM CDT Appointment [facility] [address] [place] [phone] 03/13/2025 11:00 AM CDT Appointment [facility] [address] Maternal Medicine [address] [place] [address] Zari Jasso, [facility] [address] [place] [address] [address] [place] [address] 04/04/2025 8:15 AM CDT Appointment [facility] Maternal Medicine [address] [place] [address] Alayna Toney APRN, CNM [address] [place] [address] 04/04/2025 9:00 AM CDT Appointment Special[facility] Maternal Medicine [address] [place] [address] Durga Peters MD [address] [place] [address] Dr Carrion [address] [place] [address] 04/10/2025 10:15 AM CDT Appointment [place] [address] Obstetrics/Gynecology [address] [place] [phone] [place] [address] [place] [address] 05/10/2025 8:45 AM CUSTOM BOOKBINDER Appointment [place] [address] Obstetrics/Gynecology [address] [place] [phone] [place] [address] [place] [phone] 06/05/2025 2:30 PM CUSTOM BOOKBINDER Appointment [facility] 3931 Maternal Medicine [address] [place] [address] [phone] Alayna Toney APRN, CN 3931 [place], [place] [address] 06/05/2025 3:15 PM CUSTOM BOOKBINDER Appointment [facility] 3931 Maternal Medicine [address] [place] [address] 149186 Durga Peters MD 9855 [facility] [place] [phone] documented as of this encounter Visit Diagnoses Not on filedocumented in this encounter
--- OUTSIDE RECORDS SUMMARY | 2025-03-09 23:14 | XMS_ITS | Encounter Summary ---
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 Was addressed or will be addressed at NOB visit. documented in this encounter Plan of Treatment Upcoming Encounters Date Type Department Care Team (Late st Contact Info) Description 03/13/2025 10:00 AM CDT Appointment [facility] [address] [place] [phone] 03/13/2025 11:00 AM CDT Appointment [facility] Maternal Medicine [address] [place] [address] Zari Jasso [facility] 3931 [facility] [address] [place] [address] 04/04/2025 8:15 AM CDT Appointment [facility] 393 Maternal Medicine [address] [place] [address] Alayna Toney APRN, CNM 3931 [place] [address] 04/04/2025 9:00 AM CDT Appointment [facility] Maternal Medicine [address] [place] [address] Dugra Peters MD [address] [facility] Dr Carrion [address] [place] [address] 04/10/2025 10:15 AM CDT Appointment [place] [address] Obstetrics/Gynecology [address] [place] [phone] [place] [address] [place] [address] 05/10/2025 8:45 AM ENVIRONMENTAL MARKETING REPRESENTATIVE Appointment [place] [address] Obstetrics/Gynecology [address] [place] [address] Liset Griffin APRN, CNM [address] [place] [phone] 06/05/2025 2:30 PM ENVIRONMENTAL MARKETING REPRESENTATIVE Appointment [facility] 3931 Maternal Medicine [address] [place] [address] [phone] Alayna Toney APRN, CNM 3931 [place], [place] 235266 06/05/2025 3:15 PM ENVIRONMENTAL MARKETING REPRESENTATIVE Appointment [facility] 3931 Maternal Medicine [address] [place] [address] [phone] Durga Peters MD 9[address] [facility] [place] [address] documented as of this encounter Visit Diagnoses Not on filedocumented in this encounter
--- OUTSIDE RECORDS SUMMARY | 2025-03-09 23:14 | XMS_ITS | Clinical Summary ---
Author Organization [facility] Address [address] [place] [address] Care Team Providers Care Magazine Supervisor Name Role Phone Unavailable Primary Care Provider Unavailabl e Source Comments You are receiving this document as you are listed as the primary care provider,follow-up provider, or the patient has been referred to you for consultation.This is in compliance with the Medicare and[facility] Hospital[facility] EHR Incentive Program,which states Providers who transition their patient to another setting of careor provider of care or refers their patient to another provider of care shouldprovide summary care record for each transition of care or referral. [facility] Allergies No known active allergies Medications Ferrous Sulfate Dried 160 (50 Fe) MG Activ e Vit-Fe Fumarate-FA ( OR) Active letrozole (FEMARA) 2.5 MG tabletIndicati ons:Family planning Take 1 Tablet (2.5 mg) by mouth daily for 5 days. 5 Tablet 12/15/19 25 Active progesterone (PROMETRIUM) 200 MG capsuleIndicat ions:Irregular periods/menstr ual cycles INSERT 1 CAPSULE (200 MG) VAGINALLY DAILY AT BEDTIME. 40 Capsule 1 01/16/20 25 Active metoclopramide (REGLAN) 10 MG tabletIndicati ons:Nausea and vomiting in Take 1 Tablet (10 mg) by mouth 4 times daily before meals and at bedtime. 30 Tablet 2 02/19/20 25 Active Additional Information Patient not taking.Reported on 03/08/2025 Biotin 5 MG 025 Discontinued Multiple Vitamins-Hayes als (MULTIVITAL OR) 025 Discontinued MAGNESIUM OR 025 Discontinued Rand[place]-3 Fatty Acids (OMEGA-3 CF OR) 025 Discontinued Active Problems Problem Noted Date Diagnosed Date Elevated TSH 06/03/2021 Atypical squamous cells of u ndetermined significance on cytologic smear of cervix (ASC-US) 05/25/2021 Overview (02/13/2024): Estimated Date of Delivery Comme nts Yes 10/08/2025 Based on Ultraso und Encounters Date Type Department Care Team Description 03/09/2025 Results Follow-Up [place] [address] Obstetrics/Gynecol [address] [phone] Liset Griffin, CHANNEL OPENER, CNM 03/08/2025 8:00 AM CDT Initial [place] [address] Obstetrics/Gynecol y [address] [place] [phone] Liset Griffin, CHANNEL OPENER, CNM INITIAL VISIT 03/08/2025 Results Follow-Up [place] [address] Obstetrics/Gynecol [address] [phone] Liset Griffin, CHANNEL OPENER, CNM 03/07/2025 11:15 AM CDT Ancillary Procedure [facility] [address] [place] [phone] Liset Griffin, CHANNEL OPENER, CNM Missed menses 02/20/2025 11:00 AM CDT Phone Visit [facility] Obstetrics/Gynecol og [address] [place] [address] Nurse Intake 4, P6500 Ob Missed menses (Primary Dx) 02/20/2025 E-Visit [facility] Obstetrics/Gynecol ogy [address] [place] [address] Mychart, Generic Provider 02/18/2025 Nurse Triage [facility] Obstetrics/Gynecol og [address] [place] [address] Ana Maria Melo MD Concerns 01/15/2025 Refill [facility] [address] Obstetrics/Gynecol ogy [address] [place] [address] Ana Maria Melo MD Refill (progesterone (PROMETRIUM) 200 MG capsule [Pharmacy Med Name: PROGESTERONE 200 MG CAPSULE]) 12/10/2024 10:15 AM CDT E-Visit [facility] [address] Obstetrics/[place] [address] [place] [phone] Ana Maria Melo MD Dx: Family planning (Primary Dx) from Last 3 Months Immunizations Immunization Administration Dates Next Due Pfizer Monovalent 12+ Purple Top 11/08/2020,10/02 Tdap 01/20/2022 Family History Medical History Relation Name Comments Hypertension Father Hypertension Mother Unknown Brother 1 Unknown Brother 2 Unknown Maternal Grandfather Dementia Maternal Grandmother Diabetes Paternal Grandmother Autism Sister Bipolar Disorder Sister Schizophrenia Sister Relation Name Status Comments Father Mother Alive Brother 1 Alive Brother 2 Alive Maternal Grandfather Maternal Grandmother Alive Paternal Grandfather Paternal Grandmother Alive Sister Alive Social History Tobacco Use Types Packs/Day Years [...] 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 Not o n file 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 Not 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 Not on file Not on file Last Filed Vital Signs Vital Sign Reading Time Taken Comments Blood Pressure 133/77 03/08/2025 8:07 AM CDT Pulse 83 03/08/2025 8:07 AM CDT Temperature - - Respiratory Rate 18 07/31/2024 7:16 PM TOOL MECHANIC Oxygen Saturation - - Inhaled Oxygen Concentration - - Weight 84.9 kg (187 lb 3.2 oz) 03/08/2025 8:07 A M CDT Height 162.6 cm (5' 4) 03/08/2025 8:07 AM CDT Body Mass Index 32.13 03/08/2025 8:07 AM CDT Plan of Treatment Upcoming Encounters Date Type Department Care Team (Late st Contact Info) Description 03/13/2025 10:00 AM CDT Appointment [facility] [address] [place] [phone] 03/13/2025 11:00 AM CDT Appointment [facility] 393 Maternal Medicine [address] [place] [address] Zari Jasso, [facility] 3931 [facility] [address] [place] [address] 04/04/2025 8:15 AM CDT Appointment [facility] 393 Maternal Medicine [address] [place] [address] [place] [address] [place] [address] 04/04/2025 9:00 AM CDT Appointment [facility] 393 Maternal Medicine [address] [place] [address] Durga ePters MD [address] [facility] [place] [address] 04/10/2025 10:15 AM CDT Appointment [facility] [address] Obstetrics/Gynecology [address] [place] [phone] [place] [address] [place] [address] 05/10/2025 8:45 AM TOOL MECHANIC Appointment [place] [address] Obstetrics/Gynecology [address] [place] [address] [place] [address] [place] [phone] 06/05/2025 2:30 PM TOOL MECHANIC Appointment [facility] 3931 Maternal Medicine [address] [place] [address] [phone] Alayna Toney APRN, CN 3931 [place], [place] [phone] 06/05/2025 3:15 PM TOOL MECHANIC Appointment [facility] 393 Maternal Medicine [address] [place] [address] [phone] Durga Peters MD [address] [place] [address] Dr Mu[facility] [place] [place] [phone] Health Maintenance Due Date Last Done Comments Hep C Screening (Preventive Services) 1990 HIV Screening (Preventive Services) 2006 HepB Vaccine (1) 2009 HPV Vaccine (1 - 3-dose SCDM series) 2017 COVID-19 Vaccine ( season) 2025 11/08/2020, 10/18/2020 Influenza Vaccine (#1) 2025 Adult Preventive Visit 01/02/2026 01/03/2024, 2020 Cervical Cancer Screening 01/02/20292023, 01/03/2024, 05/04/2021, Additional history exists DTaP/Tdap/Td Vaccine (2 - Tdap) 01/21/2032 01/20/2022 Zoster/Shingles Vaccine (1 of 2) 2040 HepA Vaccine Aged Out No longer eligi ble based on patient's age to complete this topic Hib Vaccine Aged Out No longer eligi ble based on patient's age to complete this topic IPV (Polio) Vaccine Aged Out No longe r eligible based on patient's age to complete this topic MCV4 Vaccine Aged Out No longer eligi ble based on patient's age to complete this topic Meningococcal B Vaccine Aged Out No l onger eligible based on patient's age to complete this topic Pneumococcal Vaccine Aged Out No long er eligible based on patient's age to complete this topic Procedures Procedure Name Priority Date/Time Associated Diagnosis Comments CHLAMYDIA & GC (14 YEARS & OLDER) Routine 03/08/2025 9:04 AM CDT High risk , antepartum US OB < 14 WEEKS SINGLE Routine 03/07/2025 11:31 AM CDT Missed menses CYTOLOGY (PAP) Routine 01/03/2024 10:43 AM CDT Screening for malignant neoplasm of cervix from Last 3 Months or Most Recently Relevant to Health Maintenance Results * Chlamydia & GC (14 Years and Older): Vagina (03/08/2025 9:04 AM CDT) Chlamydia Trachomatis STD Not Detected Not Detected 03/09/2025 12:36 AM CDT [facility] N. gonorrhoeae STD Not Detected Not Detected 03/09/2025 12:36 AM CDT [facility] Swab STD SPECIMEN FROM VAGINA / Unknown Non-blood Collection / Unknown 03/08/2025 9:04 AM CDT 03/08/2025 11:58 AM CDT [facility] - 03/09/2025 12:36 AM CDT Test performed by Clerk Of Scales Mediated Amplification (TMA). us Liset Griffin APRN, CNM LAB_1 Final Result [facility] CLIA: [id number] [address] [place] [address] * US OB < 14 Weeks Single [...] imaging was performed. FINDINGS: Gestational sac: Unremarkable. [place]-rump length measures 2.5 cm, corresponding to9w2d gestational [...] imaging was performed. FINDINGS: Gestational sac: Unremarkable. [place]-rump length measures 2.5 cm, corresponding to9w2d gestational [...] John Rivera 03/07/2025 12:37 PM us Liset Remi Griffin APRN, CNM RAD US Final Result * PAP Test (01/03/2024 10:43 AM CDT) Case Report Pap Case: [id number] Authorizing Provider: Ana Maria Melo MD Collected: 01/03/2024 1043 Ordering Location: [place] [address] Received: 01/03/2024 1121 Obstetrics/Gynec ology First Screen: Abigail Vaughn Rescreen: Padmini Mcdermott CT (ASCP) Specimen: Pap Test, Routine, Cervix/Endocervix 02/13/2024 3:00 PM CDT [facility] Pap Specimen Adequacy Satisfactory for evaluation, endocervical/ghotra sformation zone component present. 02/13/2024 3:00 PM CDT [facility] Pap Interpretation (NILM) Negative for intraepithelial lesion or malignancy. 02/13/2024 3:00 PM CDT [facility] at 1500 CDT Pap Disclaimer The Pap test is a screening test to aid in the detection of cervical and vaginal cancers and their precursor lesions. It is not a diagnostic procedure and should not be used as the sole means of detecting malignancy. Both false-positive and false-negative results may occur. 02/13/2024 3:00 PM CDT [facility] Gross Description The specimen is received in SurePath fixative and properly labeled. 1 Pap-stained SurePath slide is prepared. 02/13/2024 3:00 PM CDT [facility] Embedded Images 3:00 PM CDT [facility] Other Specimen Type ENTIRE ENDOCERVIX / Unknown 01/03/2024 10:43 AM CDT 01/03/2024 11:21 AM CDT Comment:LMP: Patient's last menstrual period was 12/24/2023 (exact date). us Ana Maria Melo MD LAB PATHOLOGY Final Result [facility] [address] [place] [address], [facility] from Last 3 Months or Most Recently Relevant to Health Maintenance Insurance [facility]
--- OUTSIDE RECORDS SUMMARY | 2025-03-09 23:14 | XMS_ITS | Encounter Summary ---
Author Organization [employer] Address [address], [place] [address] Care Team Providers Care Sorting Cows Worker Name Role Phone Unavailable Primary Care Provider Unavailabl e Reason for Visit * Reason Comments Concerns Encounter Details Date Type Department Care Team (Late st Contact Info) Description 02/18/2025 [facility] [address] 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 Patient verbalizes understanding. * Zari Forman - 02/18/2025 1:16 PM CDT Ana Maria Melo MD to [facility] Triage (Selected Message) 02/18/25 1:07 PM Reglan sent in AF * Theo Valdez, RN - 02/18/2025 11:54 AM CDT Patient calls for antiemetic prescription. She has nausea throughout the day with some vomiting. She is able to keep some food and fluids down. Denies feeling lightheaded or dizzy. Reports good UOP. Has tried Unisom and B6 with no relief. Would like a prescription sent to pharmacy on file. Reason for Disposition Nausea or vomiting Protocols used: - Morning Sickness (Nausea and Vomiting of )-ADULT-[place] Future Appointments Date Time Provider Department Center 02/20/2025 11:00 AM Nurse Intake 4, P6500 Ob P6500 OBG [facility] 6500 03/08/2025 8:00 AM Liset Griffin, AUTO SERVICE MECHANIC, CNM [facility] 04/10/2025 10:15 AM Ana Maria Melo MD [facility] documented in this encounter Plan of Treatment Upcoming Encounters Date Type Department Care Team (Late st Contact Info) Description 03/13/2025 10:00 AM CDT Appointment [facility] [address] [place] [phone] 03/13/2025 11:00 AM CDT Appointment [facility] 3931 Maternal Medicine [address] [facility] [address] Zari Jasso [facility] 3931 [facility] [address] [place] [address] 04/04/2025 8:15 AM CDT Appointment [facility] 3931 Maternal Medicine 3931 [place] [address] Alayna Toney APRN, CNM 3931 [place] [address] 04/04/2025 9:00 AM CDT Appointment [facility] 3931 Maternal Medicine 39[address] [place] [address] Durga Peters MD [address] [place] [address] [place] [address] 04/10/2025 10:15 AM CDT Appointment [place] [address] Obstetrics/Gynecology [address] [place] [phone] [place] [address] [place] [address] 05/10/2025 8:45 AM PROGRAM PLANNER Appointment [place] [address] Obstetrics/Gynecology [address] [place] [phone] Liset Griffin APRN, CNM [address] [place] [phone] 06/05/2025 2:30 PM PROGRAM PLANNER Appointment [facility] 3931 Maternal Medicine [address] [place] [address] Alayna Toney APRN, CNM 3931 [place] [address] 06/05/2025 3:15 PM PROGRAM PLANNER Appointment [facility] 39[address] Maternal Medicine [address] [place] [address] Durga Peters MD [address] [place] [address] [place] [address] documented as of this encounter Visit Diagnoses Diagnosis Nausea and vomiting in - Primary Unspecified vomiting of , unspecified as to episode of care documented in this encounter
--- OUTSIDE RECORDS SUMMARY | 2025-03-09 23:14 | XMS_ITS | Encounter Summary ---
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 Not on file Not on file Not on file documented as of this encounter Plan of Treatment Upcoming Encounters Date Type Department Care Team (Late Contact Info) Description 03/13/2025 10:00 AM CDT Appointment [facility] [address] [phone] 03/13/2025 11:00 AM CDT [facility]ment [facility] [address] [place] [address] Zari Jasso CGC [address] [facility] [address] [place] [address] 04/04/2025 8:15 AM CDT Appointment [facility] [address] [place] [address] Alayna Toney APRN, CNM [address] [place], [place] [address] 04/04/2025 9:00 AM CDT Appointment [facility] Maternal Medicine [address] [place] [address] Durga Peters MD [address] [place] [address] Dr Carrion [address] [place] [address] 04/10/2025 10:15 AM CDT Appointment [place] [address] Obstetrics/Gynecology [address] [place] [phone] [place] [address] [place] [address] 05/10/2025 8:45 AM FIBERGLASS FABRICATOR Appointment [place] [address] Obstetrics/Gynecology [address] [place] [phone] Liset Griffin, PATTI, CNM [address] [address] [place] [phone] 06/05/2025 2:30 PM FIBERGLASS FABRICATOR Appointment [facility] Maternal Medicine [facility] [place] [address] Alayna Toney, PATTI, CNM [address] [place], [place] [phone] 06/05/2025 3:15 PM FIBERGLASS FABRICATOR Appointment [facility] [address] [facility] [place] [id number] Durga Peters MD [address] [facility] [place] [phone] documented as of this encounter Visit Diagnoses Not on filedocumented in this encounter
--- OUTSIDE RECORDS SUMMARY | 2025-03-09 23:14 | XMS_ITS | Clinical Summary ---
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 Gender Identity Not on file Sexual Orientation Not on file Last Filed Vital Signs Vital Sign Reading Time Taken Comments Blood Pressure 122/91 07/31/2024 10:58 PM HEATSET WINDER OPERATOR Pulse 89 07/31/2024 10:58 PM HEATSET WINDER OPERATOR Temperature 36.9 C (98.4 F) 07/31/2024 7:51 PM HEATSET WINDER OPERATOR Respiratory Rate 18 07/31/2024 7:51 PM HEATSET WINDER OPERATOR Oxygen Saturation 100% 07/31/2024 10:22 PM HEATSET WINDER OPERATOR Inhaled Oxygen Concentration - - Weight 91.8 kg (202 lb 6.1 oz) 07/31/2024 7:51 P M HEATSET WINDER OPERATOR Height 165.1 cm (5' 5) 07/31/2024 7:51 PM HEATSET WINDER OPERATOR Body Mass Index 33.68 07/31/2024 7:51 PM HEATSET WINDER OPERATOR Plan of Treatment Health Maintenance Due Date Last Done Comments ADVANCE CARE PLANNING 1990 ANNUAL REVIEW OF HM ORDERS 1990 HIV SCREENING 2005 HEPATITIS C SCREENING 2008 HEPATITIS B VACCINE (1 of - 19+ 3-dose series) 2009 PHQ-2 (once per calendar year) 2024 YEARLY PREVENTIVE VISIT 01/02/2025 01/03/20 24, 05/04/2021 COVID-19 VACCINE (2024-2 6 season) 2025 11/08/2020, 10/18/2020 INFLUENZA VACCINE (#1) 2025 PAP 01/02/2027 01/03/2024 DTAP/TDAP/TD VACCINE (2 - Td or Tdap) 01/21/2032 01/20/2022 ZOSTER VACCINE (1 of 2) 2040 HPV VACCINE (No Doses Required) Completed MENINGITIS VACCINE Aged Out No longer eligible based on patient's age to complete this topic PNEUMOCOCCAL VACCINE: PEDIATRICS (0 to 5 YEARS) AND AT-RISK PATIENTS (6 to 49 YEARS) Aged Out No longer eligible b ased on patient's age to complete this topic Insurance WITH [employer] WITH [employer] Care Teams Education General Manager Relationship Specialty Start Date End Date Ana Maria Melo MD [facility] [address] [place] [phone] PCP - General senior operator 07/31/24
== END 2025-03-09 23:31 | disposition home or self-care (01) ==
PROVIDERS: Emergency Provider Internal Medicine
DX: N39.0 Urinary tract infection, site not specified (principal)
CPT/HCPCS: 81001; 87086; 99282; 99283